=== PATIENT | male | born 1995 | race Caucasian/White ===

== ENCOUNTER 2017-06-26 01:00 | Emergency (ER) | payer OTHER ==
[~2017-06-26] VITALS: Ht 172.7 cm; Wt 77.5 kg
[2017-06-26 03:24] VITALS: BP 103/65
== END 2017-06-26 03:22 | disposition left against medical advice (07) ==
LOC: ER 01:14
DX: Z53.21 Procedure and treatment not carried out due to patient leaving prior to being seen by health care provider (principal)

== ENCOUNTER 2017-06-26 15:51 | Emergency (ER) | payer OTHER ==
[~2017-06-26] VITALS: Ht 167.6 cm; Wt 80.0 kg
[2017-06-26 16:20] VITALS: BP 113/69
== END 2017-06-26 20:00 | disposition left against medical advice (07) ==
LOC: ER 19:45
DX: Z53.21 Procedure and treatment not carried out due to patient leaving prior to being seen by health care provider (principal)

== ENCOUNTER 2017-06-27 01:59 | Emergency (ER) | payer OTHER ==
[~2017-06-27] VITALS: Ht 172.7 cm; Wt 72.0 kg
[2017-06-27] MEDS ORDERED: MAGNESIUM/ALUMINUM HYDROXIDE/SIMETHICONE 30ML UDC PO ONE (07:00)
[2017-06-27 07:30] VITALS: BP 120/68
== END 2017-06-27 07:49 | disposition home or self-care (01) ==
LOC: ER 02:08
DX: J02.9 Acute pharyngitis, unspecified (principal); R06.02 Shortness of breath; F12.90 Cannabis use, unspecified, uncomplicated; R20.8 Other disturbances of skin sensation
CPT/HCPCS: 87070; 87430; 99284